=== PATIENT | male | born 1980 | race Caucasian/White ===

== ENCOUNTER 2021-09-10 06:38 | Day surgery (SDC) | payer MEDICAID, SELFPAY ==
[~2021-09-10] VITALS: Ht 160 cm; Wt 72.6 kg
[2021-09-10] MEDS ORDERED: MEPERIDINE 100 MG INJ. 100 MG/ML VIAL ONE (06:58)
[2021-09-10] MEDS ORDERED: MIDAZOLAM HCL 5 MG/5 ML VIAL ONE (06:58)
[2021-09-10 12:17] VITALS: BP_SYST 115
== END 2021-09-10 09:05 | disposition home or self-care (01) ==
LOC: SDS 06:38 → SMU 06:39 → SDS 09:05
PROVIDERS: ATTEND Internal Medicine Gastroenterology
DX: R10.9 Unspecified abdominal pain (principal); K29.50 Unspecified chronic gastritis without bleeding; K29.80 Duodenitis without bleeding; K20.90 Esophagitis, unspecified without bleeding; K76.0 Fatty (change of) liver, not elsewhere classified; Z79.899 Other long term (current) drug therapy; Z20.822 Contact with and (suspected) exposure to COVID-19
CPT/HCPCS: 36415; 43239; 87426; 88305; 88312; 88313; G0378; J2175; J2250; U0003